=== PATIENT | female | born 1935 | race Two or more races ===

== ENCOUNTER → 2018-04-22 | Outpatient (CLI) | payer MEDICARE ==
--- NOTE | 2018-04-22 15:14 | KCIC ---
CT HEAD INDICATION: Dementia, memory loss, unsteady gait COMPARISON: None Available. Exposure: One or more of the following individualized dose reduction techniques were utilized for this examination: 1. Automated exposure control 2. Adjustment of the mA and/or kV according to patient size 3. Use of iterative reconstruction technique TECHNIQUE: 5 mm contiguous axial images were obtained from the skull base to the vertex in both bone and soft tissue algorithm. FINDINGS: Mild bilateral periventricular white matter hypodensities likely chronic small vessel ischemic disease. 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 No evidence of acute intracranial hemorrhage. No extra-axial fluid collections. No mass effect or midline shift. Ventricular size is appropriate. Basal cisterns are patent. No fractures identified.Mccarty-white differentiation is preserved.Globes and orbits are within normal limits. Paranasal sinuses and mastoid air cells are clear. IMPRESSION: No acute intracranial findings. Electronically signed by: Angel Luis Duggan MD (04/22/2018 3:11 PM) [place] [id number]
== END | disposition home or self-care (01) ==
LOC: KCIC CT 13:22
PROVIDERS: ATTEND Psychiatry & Neurology Neurology
DX: F03.90 Unspecified dementia, unspecified severity, without behavioral disturbance, psychotic disturbance, mood disturbance, and anxiety (principal); R41.3 Other amnesia; R26.81 Unsteadiness on feet
CPT/HCPCS: 70450

== ENCOUNTER → 2021-08-02 | Outpatient (CLI) | payer MEDICARE, MEDICAID ==
--- NOTE | 2021-08-02 15:27 | RAD ---
US BILATERAL LOWEREXTREMITY VENOUS DOPPLER History: Reason: LOCALIZED SWELLING/ LE LUMP/MASS / Spl. Instructions: / History: Comparison: None. Technique: Multiple longitudinal and transverse high resolution real-time images of the venous system of bilateral lower extremity were obtained with color and Doppler sampling. Findings: Right lower extremity: Patent right common femoral, deep femoral, superficial femoral, popliteal and calf veins. Left lower extremity: Noncompression of the left distal superficial femoral vein. Patent left common femoral, deep femoral, popliteal and calf veins. Impression: 1. 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 Electronically signed by: Agustin Hernandez DO (08/02/2021 3:25 PM) [id number]
== END ==
LOC: US 13:09
PROVIDERS: ATTEND Nurse Practitioner Adult Health
DX: R22.43 Localized swelling, mass and lump, lower limb, bilateral (principal)
CPT/HCPCS: 93970